=== PATIENT | female | born 1980 | race Caucasian/White ===

== ENCOUNTER 2017-12-10 09:57 | Emergency (ER) | payer OTHER, MEDICAID ==
[~2017-12-10] VITALS: Ht 149.9 cm; Wt 59.0 kg
[~2017-12-10 09:57] MED LIST: ACCUNEB SO1.25 MG/1; ACETAMINOPHEN; ADVAIR; ALEVE220 M1; BACTRIM DS TAB1 EACH PO; BENADRYL25 MG PO; CEFDINIR300 MG PO; CHERATUSSIN DA480 ML PO; CLONAZEPAM PO; DESYREL150 MG PO; DIFLUCAN150 M1 PO; FIORINAL 50-321 EACH; FLAGYL500 MG PO; FLEXERIL PO; HYDROCODON-ACE1 EACH; HYDROCODONE-AP1 EAC6 PO; IBUPROFEN 800800 M1; KEFLEX500 MG; KEFLEX500 MG PO; NORCO 5-325 TA1 EACH PO; ONDANSETRON HCL4 M2 PO; PHENERGAN 25 MG25 M1 PO; PHENERGAN25 MG RE; PRENATAL; PRILOSEC 20 MG20 MG; PROVENTIL IH; TRINATE TABLET1 TAB PO; ULTRAM 50MG TAB50 MG PO; VENTOLIN HFA 1818 GM INH; VISTARIL 25 MG25 M1 PO; ZOFRAN ODT4 MG PO; ZOFRAN4 MG PO; ZOLOFT100 MG PO
[2017-12-10] MEDS ORDERED: VALIUM2 MG PO (10:13)
[2017-12-10] MEDS ORDERED: INDERAL40 MG PO (10:13)
[2017-12-10 10:48] LABS: URINE BLOOD 3+ (Negative); URINE CLARITY CLEAR; URINE COLOR YELLOW; URINE GLUCOSE-RANDOM NEGATIVE (Negative); URINE KETONES NEGATIVE (Negative); URINE LEUKOCYTES-REFLEX NEGATIVE (Negative); URINE NITRITE-REFLEX NEGATIVE (Negative); URINE PROTEIN 1+ (Negative); URINE SPECIFIC GRAVITY >= 1.030 (1.005-1.030); URINE UROBILINOGEN 0.2 E.U./dl (0.2-1.0)
[2017-12-10 10:49] LABS: ICTOTEST (BILI CONFIRMATORY) Negative (Negative); URINE BILIRUBIN 1+ (Negative)
[2017-12-10 10:53] LABS: BACTERIA-REFLEX 1-9 Few /HPF (None Seen); CASTS None Seen /LPF (None Seen); CRYSTALS None Seen /LPF (None Seen); MUCUS None Seen strn/LPF (None Seen); SQUAMOUS 4-10 Moderate /LPF (0-3); URINE RBC >20 Many /HPF (0-2); URINE WBC-REFLEX 0-5 Rare /HPF (0-5)
[2017-12-10 10:59] LABS: ABSOLUTE BASOPHILS 0.1 thou/uL (0.0-0.2); ABSOLUTE EOSINOPHILS 0.2 thou/uL (0.0-0.7); ABSOLUTE LYMPHOCYTES 2.6 thou/uL (0.8-5.3); ABSOLUTE MONOCYTES 0.5 thou/uL (0.0-1.2); ABSOLUTE NEUTROPHILS 6.6 thou/uL (1.6-8.1); BASOPHILS 0.6 %; EOSINOPHILS 1.9 %; HEMOGLOBIN 14.1 gm/dL (12.0-15.0); MCH 31.9 pg (26.0-34.0); MCHC 33.6 g/dL (28.0-37.0); MCV 95.2 fL (80.0-100.0); MONOCYTES 5.3 %; MPV 7.7 fl. (7.2-11.1); NUCLEATED RBCS 0 /100WBC; PLATELET COUNT* 279 thou/uL (150-400); POLYS 66.2 %; RBC 4.41 mil/uL (4.20-5.00); RDW-CV 14.7 % (10.5-14.5); WBC 9.9 thou/uL (4.0-11.0)
[2017-12-10 11:04] LABS: CALCIUM 8.2 mg/dL (8.5-10.1); CREATININE 0.8 mg/dL (0.6-1.3); POTASSIUM 3.7 mmol/L (3.5-5.1)
[2017-12-10 11:09] LABS: ALBUMIN 3.5 g/dL (3.4-5.0); TOTAL BILIRUBIN 0.3 mg/dL (<0.1-1.0); TOTAL PROTEIN 6.7 g/dL (6.4-8.2)
[2017-12-10] MEDS ORDERED: PERCOCET 5-3251 EACH PO (11:46)
[2017-12-10 12:13] VITALS: BP 143/83
== END 2017-12-10 12:13 | disposition home or self-care (01) ==
LOC: M.ERS 09:57
PROVIDERS: Nurse Practitioner Family
DX: N83.291 Other ovarian cyst, right side (principal); J45.909 Unspecified asthma, uncomplicated; G43.909 Migraine, unspecified, not intractable, without status migrainosus; F41.9 Anxiety disorder, unspecified; F17.210 Nicotine dependence, cigarettes, uncomplicated; Z90.711 Acquired absence of uterus with remaining cervical stump; Z88.1 Allergy status to other antibiotic agents; Z88.8 Allergy status to other drugs, medicaments and biological substances

== ENCOUNTER → 2017-12-21 | Outpatient (CLI) | payer OTHER, MEDICAID ==
[~2017-12-21] MED LIST changes: +INDERAL40 MG PO; +PERCOCET 5-3251 EACH PO; +VALIUM2 MG PO
== END ==
LOC: M.ULTRA 11:26
DX: N83.201 Unspecified ovarian cyst, right side (principal); Z90.710 Acquired absence of both cervix and uterus

== ENCOUNTER → 2018-07-27 | Outpatient (CLI) | payer OTHER, MEDICAID | LOC: M.ULTRA 07-21 08:10 | DX: N83.202 Unspecified ovarian cyst, left side (principal); N83.201 Unspecified ovarian cyst, right side; N20.0 Calculus of kidney; Z87.442 Personal history of urinary calculi; Z90.710 Acquired absence of both cervix and uterus ==

== ENCOUNTER → 2018-07-30 | Outpatient (CLI) | payer OTHER, MEDICAID | LOC: M.RAD 14:43 | DX: M54.6 Pain in thoracic spine (principal); V89.0XXA Person injured in unspecified motor-vehicle accident, nontraffic, initial encounter ==

== ENCOUNTER → 2018-08-09 | Outpatient (CLI) | payer OTHER, MEDICAID | LOC: M.CT 08:25 | DX: M54.5 Low back pain (principal); Z87.442 Personal history of urinary calculi ==

== ENCOUNTER → 2019-06-23 | Outpatient (CLI) | payer OTHER, MEDICAID ==
[~2019-06-23] MED LIST changes: +IBUPROFEN 800800 M1 PO; +LEVAQUIN 750 M750 MG PO; +PERCOCET PO
--- NOTE | 2019-06-23 15:22 | EKG ---
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
== END ==
LOC: M.CRD 11:02
DX: R00.2 Palpitations (principal)

== ENCOUNTER → 2019-08-23 | Outpatient (CLI) | payer OTHER, MEDICAID | LOC: M.RAD 10:20 | DX: M25.512 Pain in left shoulder (principal) ==

== ENCOUNTER 2020-03-07 15:43 | Emergency (ER) | payer OTHER, MEDICAID ==
[~2020-03-07] VITALS: Ht 149.9 cm; Wt 52.2 kg
[2020-03-07 16:11] LABS: URINE BILIRUBIN NEGATIVE (Negative); URINE BLOOD 1+ (Negative); URINE CLARITY CLEAR; URINE COLOR YELLOW; URINE GLUCOSE-RANDOM NEGATIVE (Negative); URINE KETONES NEGATIVE (Negative); URINE LEUKOCYTES-REFLEX NEGATIVE (Negative); URINE NITRITE-REFLEX NEGATIVE (Negative); URINE PROTEIN NEGATIVE (Negative); URINE SPECIFIC GRAVITY 1.025 (1.005-1.030); URINE UROBILINOGEN 0.2 E.U./dl (0.2-1.0)
[2020-03-07 16:14] LABS: ABSOLUTE BASOPHILS 0.1 thou/uL (0.0-0.2); ABSOLUTE EOSINOPHILS 0.1 thou/uL (0.0-0.7); ABSOLUTE LYMPHOCYTES 2.7 thou/uL (0.8-5.3); ABSOLUTE MONOCYTES 0.4 thou/uL (0.0-1.2); ABSOLUTE NEUTROPHILS 4.8 thou/uL (1.6-8.1); BASOPHILS 0.7 %; EOSINOPHILS 1.8 %; HEMATOCRIT 43.2 % (37.0-47.0); LYMPHOCYTES 33.5 %; MCH 33.5 pg (26.0-34.0); MCHC 34.7 g/dL (28.0-37.0); MCV 96.5 fL (80.0-100.0); MONOCYTES 5.4 %; MPV 7.5 fl. (7.2-11.1); NUCLEATED RBCS 0 /100WBC; PLATELET COUNT* 307 thou/uL (150-400); POLYS 58.6 %; RBC 4.48 mil/uL (4.20-5.00); RDW-CV 12.8 % (10.5-14.5); WBC 8.2 thou/uL (4.0-11.0)
[2020-03-07 16:21] LABS: SQUAMOUS >10 Many /LPF (0-3)
[2020-03-07 16:22] LABS: BACTERIA-REFLEX 1-9 Few /HPF (None Seen); CASTS None Seen /LPF (None Seen); CRYSTALS None Seen /LPF (None Seen); MUCUS >6 Heavy strn/LPF (None Seen); URINE RBC 3-10 Few /HPF (0-2); URINE WBC-REFLEX 0-5 Rare /HPF (0-5)
[2020-03-07 16:24] LABS: CALCIUM 8.9 mg/dL (8.5-10.1); CREATININE 0.9 mg/dL (0.6-1.3)
[2020-03-07 16:28] LABS: ALBUMIN 4.2 g/dL (3.4-5.0); TOTAL BILIRUBIN 0.2 mg/dL (<0.1-1.0); TOTAL PROTEIN 7.8 g/dL (6.4-8.2)
[2020-03-07] MEDS ORDERED: NORCO 5-325 TA1 EAC2 PO (17:32)
[2020-03-07] MEDS ORDERED: IBUPROFEN 800800 M1 PO (17:32)
[2020-03-07] MEDS ORDERED: ONDANSETRON HCL4 M2 PO (17:32)
[2020-03-07] MEDS ORDERED: CIPRO500 MG PO (17:32)
[2020-03-07] MEDS ORDERED: FLOMAX0.4 MG PO (17:33)
[2020-03-07] MEDS ORDERED: PERCOCET PO (17:39)
[2020-03-07 17:55] VITALS: BP 131/70
== END 2020-03-07 17:56 | disposition home or self-care (01) ==
LOC: M.ERS 15:43
PROVIDERS: Nurse Practitioner Family
DX: N20.1 Calculus of ureter (principal); J45.909 Unspecified asthma, uncomplicated; G43.909 Migraine, unspecified, not intractable, without status migrainosus; F41.9 Anxiety disorder, unspecified; F17.210 Nicotine dependence, cigarettes, uncomplicated; Z98.890 Other specified postprocedural states; Z90.710 Acquired absence of both cervix and uterus; Z88.1 Allergy status to other antibiotic agents; Z88.6 Allergy status to analgesic agent; Z88.8 Allergy status to other drugs, medicaments and biological substances

== ENCOUNTER 2020-10-03 17:56 | Inpatient (IN) | payer OTHER, MEDICAID ==
[~2020-10-03] VITALS: Ht 149.9 cm; Wt 180.1 kg
[~2020-10-03 17:56] MED LIST changes: +CIPRO500 MG PO; +FLOMAX0.4 MG PO; +NORCO 5-325 TA1 EAC2 PO
[2020-10-03 18:10] VITALS: BP 142/95
[2020-10-03 18:42] LABS: HEMATOCRIT 49.3 % (37.0-47.0); HEMOGLOBIN 15.6 gm/dL (12.0-15.0); MCH 32.3 pg (26.0-34.0); MCHC 31.7 g/dL (28.0-37.0); MPV 7.1 fl. (7.2-11.1); NUCLEATED RBCS 0 /100WBC; PLATELET COUNT* 379 thou/uL (150-400); RBC 4.84 mil/uL (4.20-5.00); RDW-CV 17.7 % (10.5-14.5); WBC 23.5 thou/uL (4.0-11.0)
[2020-10-03 18:49] LABS: CALCIUM 8.5 mg/dL (8.5-10.1); CREATININE 1.3 mg/dL (0.6-1.3)
[2020-10-03 18:53] LABS: ALBUMIN 3.9 g/dL (3.4-5.0); TOTAL BILIRUBIN 0.3 mg/dL (<0.1-1.0); TOTAL PROTEIN 8.3 g/dL (6.4-8.2)
[2020-10-03 18:59] LABS: POTASSIUM 1.9 mmol/L (3.5-5.1)
[2020-10-03 19:09] LABS: ABSOLUTE LYMPHOCYTES 1.6 thou/uL (0.8-5.3); ABSOLUTE MONOCYTES 1.4 thou/uL (0.0-1.2); ABSOLUTE NEUTROPHILS 20.4 thou/uL (1.6-8.1)
[2020-10-03 19:11] LABS: ANISOCYTOSIS 1+; MACROCYTES Occasional; PLATELET ESTIMATE ADEQUATE
[2020-10-03 19:18] LABS: ACETAMINOPHEN < 2 ug/mL (10-30); ALCOHOL < 10 mg/dL (<10); SALICYLATE 13.3 mg/dL (2.8-20.0)
[2020-10-03 19:46] LABS: INFLUENZA A ANTIGEN Negative (Negative); INFLUENZA B ANTIGEN Negative (Negative)
[2020-10-03 20:08] LABS: BE -27.8 mmol/L (-2 to +3)
[2020-10-03 20:11] LABS: PCO2 < 17.0 mmHg (35.0-45.0); PO2 132.2 mmHg (75.0-100.0); pH 6.943 (7.340-7.450)
[2020-10-03 21:10] LABS: URINE BLOOD 2+ (Negative); URINE CLARITY CLEAR; URINE COLOR YELLOW; URINE GLUCOSE-RANDOM NEGATIVE (Negative); URINE LEUKOCYTES-REFLEX NEGATIVE (Negative); URINE NITRITE-REFLEX NEGATIVE (Negative); URINE PROTEIN 1+ (Negative); URINE SPECIFIC GRAVITY >= 1.030 (1.005-1.030); URINE UROBILINOGEN 0.2 E.U./dl (0.2-1.0)
[2020-10-03 21:13] LABS: ICTOTEST (BILI CONFIRMATORY) Negative (Negative); URINE BILIRUBIN 1+ (Negative); URINE KETONES 3+ (Negative)
[2020-10-03 21:20] LABS: AMP/METHAMP POSITIVE (Negative); BARBITURATES POSITIVE (Negative); BENZODIAZEPINES POSITIVE (Negative); COCAINE Negative (Negative); METHADONE Negative (Negative); OPIATES Negative (Negative); PCP Negative (Negative); THC POSITIVE (Negative)
[2020-10-03 21:22] LABS: APTT 34.3 Seconds (25.0-31.3); INR 1.1; PROTIME 11.3 Seconds (9.20-11.50)
[2020-10-03 21:25] LABS: HYALINE CASTS 4-10 Moderate /LPF (None Seen); SQUAMOUS >10 Many /LPF (0-3)
[2020-10-03 21:26] LABS: BACTERIA-REFLEX 1-9 Few /HPF (None Seen); CRYSTALS None Seen /LPF (None Seen); MUCUS None Seen strn/LPF (None Seen); URINE RBC 3-10 Few /HPF (0-2); URINE WBC-REFLEX 0-5 Rare /HPF (0-5)
[2020-10-03 22:28] LABS: BE -25.9 mmol/L (-2 to +3)
[2020-10-03 22:32] LABS: PCO2 19.3 mmHg (35.0-45.0); pH 6.975 (7.340-7.450)
[2020-10-03 22:33] LABS: PO2 > 488.8 mmHg (75.0-100.0)
[2020-10-03 22:35] LABS: PHOSPHORUS* 2.2 mg/dL (2.5-4.9); POTASSIUM 2.5 mmol/L (3.5-5.1)
[2020-10-03 23:02] LABS: ACETAMINOPHEN < 2 ug/mL (10-30); SALICYLATE 10.6 mg/dL (2.8-20.0)
[2020-10-03 23:52] VITALS: BP 129/88
[2020-10-03 23:55] VITALS: BP 118/70
[2020-10-04] VITALS (37 sets, daily range): BP systolic 76–141; BP diastolic 44–90
[2020-10-04 03:28] LABS: BE -18.8 mmol/L (-2 to +3); PCO2 22.2 mmHg (35.0-45.0)
[2020-10-04 03:29] LABS: pH 7.168 (7.340-7.450)
[2020-10-04 03:30] LABS: PO2 57.2 mmHg (75.0-100.0)
[2020-10-04 05:10] LABS: HEMATOCRIT 40.4 % (37.0-47.0); MCH 32.2 pg (26.0-34.0); MCHC 32.5 g/dL (28.0-37.0); RBC 4.08 mil/uL (4.20-5.00); RDW-CV 16.7 % (10.5-14.5); WBC 13.4 thou/uL (4.0-11.0)
[2020-10-04 05:17] LABS: MAGNESIUM 1.8 mg/dL (1.8-2.4); PHOSPHORUS* < 0.5 mg/dL (2.5-4.9)
[2020-10-04 05:20] LABS: ALBUMIN 2.5 g/dL (3.4-5.0); CALCIUM 6.8 mg/dL (8.5-10.1); CREATININE 0.9 mg/dL (0.6-1.3); TOTAL BILIRUBIN 0.4 mg/dL (<0.1-1.0); TOTAL PROTEIN 5.6 g/dL (6.4-8.2)
[2020-10-04 05:31] LABS: HEMOGLOBIN 13.1 gm/dL (12.0-15.0)
--- NOTE | 2020-10-04 10:19 | EKG ---
[place] [address] ELECTROCARDIOGRAM REPORT Name: ALONDRA ALLAN Room: [address] ADM IN .R.#: [id number] Admission: 10/03/20 Attend Phys: Aleah Moe MD Discharge: Date of : 82 Date of Service: 10/03/201927 Report #: [id number] THIS REPORT FOR: //name// [facility] ED Test Date: 2020-10-03 Test Time: 19:28:27 Pat Name: ALONDRA ALLAN Department: Room: [facility] Gender: F Medical Cash Poster: DIAMOND : 1980 Requested By: Amara Ruiz Order Number: [id number] MD: Asael Dumont Measurements Intervals [place] Rate: 102 P: 73 CA: 107 QRS: 59 QRSD: 115 T: -57 QT: 458 QTc: 597 Interpretive Statements Sinus tachycardia Diffuse artifact compared to ECG 06/23/2019 11:23:06 Artifact noted Electronically Signed On 10-04-2020 10:19:42 CDT by Asael Dumont [email or web address] <ELECTRONICALLY SIGNED> By: Asael Dumont MD, FACC 10/04/20 1019 27 27 Asael Dumont MD, FAC /EPI
[2020-10-04 14:41] LABS: CALCIUM 6.7 mg/dL (8.5-10.1); CREATININE 0.8 mg/dL (0.6-1.3); PHOSPHORUS* 0.5 mg/dL (2.5-4.9)
[2020-10-04 16:35] LABS: PCO2 30.7 mmHg (35.0-45.0); PO2 102.3 mmHg (75.0-100.0); pH 7.401 (7.340-7.450)
[2020-10-04 21:26] LABS: CALCIUM 6.4 mg/dL (8.5-10.1); CREATININE 0.7 mg/dL (0.6-1.3); PHOSPHORUS* 1.4 mg/dL (2.5-4.9)
[2020-10-04 21:27] LABS: POTASSIUM 2.5 mmol/L (3.5-5.1)
[2020-10-05] VITALS (57 sets, daily range): BP systolic 75–125; BP diastolic 41–89
[2020-10-05 06:06] LABS: HEMATOCRIT 28.5 % (37.0-47.0); MCH 32.4 pg (26.0-34.0); MCHC 33.7 g/dL (28.0-37.0); MCV 96.1 fL (80.0-100.0); MPV 7.1 fl. (7.2-11.1); RBC 2.97 mil/uL (4.20-5.00); RDW-CV 16.2 % (10.5-14.5); WBC 11.9 thou/uL (4.0-11.0)
[2020-10-05 06:07] LABS: HEMOGLOBIN 9.6 gm/dL (12.0-15.0)
[2020-10-05 06:22] LABS: PCO2 35.6 mmHg (35.0-45.0); pH 7.474 (7.340-7.450)
[2020-10-05 06:24] LABS: PO2 134.9 mmHg (75.0-100.0)
[2020-10-05 06:26] LABS: ALBUMIN 1.8 g/dL (3.4-5.0); CALCIUM 7.3 mg/dL (8.5-10.1); CREATININE 0.6 mg/dL (0.6-1.3); MAGNESIUM 1.3 mg/dL (1.8-2.4); TOTAL BILIRUBIN 0.2 mg/dL (<0.1-1.0); TOTAL PROTEIN 4.5 g/dL (6.4-8.2)
[2020-10-05 06:27] LABS: POTASSIUM 2.4 mmol/L (3.5-5.1)
[2020-10-05 10:01] LABS: BE 1.6 mmol/L (-2 to +3); PCO2 35.2 mmHg (35.0-45.0); PO2 65.2 mmHg (75.0-100.0); pH 7.469 (7.340-7.450)
[2020-10-05 10:27] LABS: URINE BILIRUBIN NEGATIVE (Negative); URINE BLOOD TRACE (Negative); URINE CLARITY CLEAR; URINE COLOR YELLOW; URINE GLUCOSE-RANDOM NEGATIVE (Negative); URINE KETONES 1+ (Negative); URINE LEUKOCYTES TRACE (Negative); URINE NITRITE NEGATIVE (Negative); URINE PROTEIN TRACE (Negative); URINE UROBILINOGEN 0.2 E.U./dl (0.2-1.0)
[2020-10-05 10:51] LABS: BACTERIA 1-9 Few /HPF (None Seen); CASTS None Seen /LPF (None Seen); CRYSTALS None Seen /LPF (None Seen); MUCUS None Seen strn/LPF (None Seen); SQUAMOUS 4-10 Moderate /LPF (0-3); URINE RBC 0-2 Rare /HPF (0-2); URINE WBC 0-5 Rare /HPF (0-5)
[2020-10-05 14:37] LABS: CALCIUM 7.2 mg/dL (8.5-10.1); CREATININE 0.5 mg/dL (0.6-1.3); MAGNESIUM 1.9 mg/dL (1.8-2.4); PHOSPHORUS* 2.9 mg/dL (2.5-4.9)
[2020-10-05 14:40] LABS: POTASSIUM 2.9 mmol/L (3.5-5.1)
[2020-10-05] MEDS ORDERED: PREMARIN1.25 MG PO (18:21)
[2020-10-05] MEDS ORDERED: ZOLOFT100 MG PO (18:23)
[2020-10-05] MEDS ORDERED: LAMICTAL100 MG PO (18:23)
[2020-10-06] VITALS (15 sets, daily range): BP systolic 105–139; BP diastolic 65–92
[2020-10-06 06:11] LABS: HEMATOCRIT 32.5 % (37.0-47.0); HEMOGLOBIN 11.1 gm/dL (12.0-15.0); MCH 33.5 pg (26.0-34.0); MCV 98.3 fL (80.0-100.0); MPV 7.6 fl. (7.2-11.1); RBC 3.31 mil/uL (4.20-5.00); RDW-CV 16.4 % (10.5-14.5); WBC 10.1 thou/uL (4.0-11.0)
[2020-10-06 06:25] LABS: ALBUMIN 2.1 g/dL (3.4-5.0); CALCIUM 7.2 mg/dL (8.5-10.1); CREATININE 0.5 mg/dL (0.6-1.3); MAGNESIUM 1.9 mg/dL (1.8-2.4); POTASSIUM 3.4 mmol/L (3.5-5.1); TOTAL BILIRUBIN 0.4 mg/dL (<0.1-1.0); TOTAL PROTEIN 5.4 g/dL (6.4-8.2)
[2020-10-06 07:18] LABS: PHOSPHORUS* 1.8 mg/dL (2.5-4.9)
[2020-10-06] MEDS ORDERED: ESGIC CAPSULE1 EACH PO (20:10)
[2020-10-07 00:06] VITALS: BP 140/87
[2020-10-07 03:53] VITALS: BP 134/88
[2020-10-07 04:30] LABS: CALCIUM 7.8 mg/dL (8.5-10.1); CREATININE 0.5 mg/dL (0.6-1.3)
[2020-10-07 04:33] LABS: POTASSIUM 2.8 mmol/L (3.5-5.1)
[2020-10-07 08:00] VITALS: BP 144/83
[2020-10-07 11:44] VITALS: BP 126/79
[2020-10-07 15:47] LABS: CALCIUM 7.7 mg/dL (8.5-10.1); CREATININE 0.8 mg/dL (0.6-1.3); POTASSIUM 3.8 mmol/L (3.5-5.1)
[2020-10-07 16:47] VITALS: BP 119/87
[2020-10-07 20:00] VITALS: BP 123/86
[2020-10-08] VITALS: BP 128/68
[2020-10-08 05:24] LABS: CALCIUM 7.9 mg/dL (8.5-10.1); CREATININE 0.6 mg/dL (0.6-1.3); POTASSIUM 3.8 mmol/L (3.5-5.1)
[2020-10-08] MEDS ORDERED: DOXYCYCLINE 10100 MG PO (07:52)
[2020-10-08] MEDS ORDERED: CEFDINIR300 MG PO (07:52)
[2020-10-08] MEDS ORDERED: KLOR-CON M2020 MEQ PO (07:52)
[2020-10-08 10:41] VITALS: BP 128/68
[2020-10-08 14:48] VITALS: BP 128/68
== END 2020-10-08 12:27 | disposition home or self-care (01) | DRG 871 ==
LOC: M.ERS 17:56 → M.ICU 22:04 → M.2W 22:04 → M.TBA-ER 22:04 → M.ICU 23:58 → M.2W 10-06 16:25
PROVIDERS: Internal Medicine; Internal Medicine Nephrology; Nurse Practitioner Family; Personal Emergency Response Attendant; Physician Assistant; ADMIT Family Medicine; ATTEND Family Medicine
PROC: 02HV33Z Insertion of Infusion Device into Superior Vena Cava, Percutaneous Approach (ICD-10-PCS; principal; 2020-10-03)
PROC: 5A1945Z Respiratory Ventilation, 24-96 Consecutive Hours (ICD-10-PCS; principal; 2020-10-03)
PROC: 0BH17EZ Insertion of Endotracheal Airway into Trachea, Via Natural or Artificial Opening (ICD-10-PCS; principal; 2020-10-03)
DX: A41.9 Sepsis, unspecified organism (principal); J96.01 Acute respiratory failure with hypoxia; E43 Unspecified severe protein-calorie malnutrition; J69.0 Pneumonitis due to inhalation of food and vomit; E87.2 Acidosis; E87.3 Alkalosis; M62.82 Rhabdomyolysis; K52.1 Toxic gastroenteritis and colitis; Z68.45 Body mass index [BMI] 70 or greater, adult; J45.909 Unspecified asthma, uncomplicated; R65.20 Severe sepsis without septic shock; G43.909 Migraine, unspecified, not intractable, without status migrainosus; F41.9 Anxiety disorder, unspecified; F43.10 Post-traumatic stress disorder, unspecified; F17.210 Nicotine dependence, cigarettes, uncomplicated; E87.6 Hypokalemia; E83.39 Other disorders of phosphorus metabolism; F13.10 Sedative, hypnotic or anxiolytic abuse, uncomplicated; F15.10 Other stimulant abuse, uncomplicated; D64.9 Anemia, unspecified; T36.95XA Adverse effect of unspecified systemic antibiotic, initial encounter; Z20.822 Contact with and (suspected) exposure to COVID-19; Z90.710 Acquired absence of both cervix and uterus; Z79.899 Other long term (current) drug therapy; Z79.1 Long term (current) use of non-steroidal anti-inflammatories (NSAID); Z88.1 Allergy status to other antibiotic agents; Z88.8 Allergy status to other drugs, medicaments and biological substances; Z88.5 Allergy status to narcotic agent; Y92.89 Other specified places as the place of occurrence of the external cause; Z23 Encounter for immunization

== ENCOUNTER 2021-07-09 12:24 | Emergency (ER) | payer OTHER, MEDICAID ==
[~2021-07-09] VITALS: Ht 175.3 cm; Wt 86.2 kg
[~2021-07-09 12:24] MED LIST changes: +DOXYCYCLINE 10100 MG PO; +ESGIC CAPSULE1 EACH PO; +KLOR-CON M2020 MEQ PO; +LAMICTAL100 MG PO; +PREMARIN1.25 MG PO
[2021-07-09 16:01] LABS: URINE BILIRUBIN NEGATIVE (Negative); URINE BLOOD 1+ (Negative); URINE CLARITY CLEAR; URINE COLOR YELLOW; URINE GLUCOSE-RANDOM NEGATIVE (Negative); URINE KETONES NEGATIVE (Negative); URINE LEUKOCYTES-REFLEX NEGATIVE (Negative); URINE NITRITE-REFLEX NEGATIVE (Negative); URINE PROTEIN NEGATIVE (Negative); URINE UROBILINOGEN 0.2 E.U./dl (0.2-1.0)
[2021-07-09 16:20] LABS: BACTERIA-REFLEX None Seen /HPF (None Seen); CASTS None Seen /LPF (None Seen); CRYSTALS None Seen /LPF (None Seen); MUCUS None Seen strn/LPF (None Seen); SQUAMOUS >10 Many /LPF (0-3); URINE RBC 0-2 Rare /HPF (0-2); URINE WBC-REFLEX 0-5 Rare /HPF (0-5)
[2021-07-09 17:14] LABS: ABSOLUTE BASOPHILS 0.1 thou/uL (0.0-0.2); ABSOLUTE EOSINOPHILS 0.4 thou/uL (0.0-0.7); ABSOLUTE LYMPHOCYTES 3.7 thou/uL (0.8-5.3); ABSOLUTE MONOCYTES 0.6 thou/uL (0.0-1.2); ABSOLUTE NEUTROPHILS 3.9 thou/uL (1.6-8.1); BASOPHILS 1.1 %; EOSINOPHILS 4.4 %; HEMATOCRIT 41.3 % (37.0-47.0); HEMOGLOBIN 13.7 gm/dL (12.0-15.0); LYMPHOCYTES 42.5 %; MCH 31.7 pg (26.0-34.0); MCHC 33.3 g/dL (28.0-37.0); MCV 95.1 fL (80.0-100.0); MONOCYTES 6.7 %; MPV 7.3 fl. (7.2-11.1); NUCLEATED RBCS 0 /100WBC; PLATELET COUNT* 332 thou/uL (150-400); POLYS 45.3 %; RBC 4.34 mil/uL (4.20-5.00); RDW-CV 13.8 % (10.5-14.5); WBC 8.7 thou/uL (4.0-11.0)
[2021-07-09 17:19] LABS: CALCIUM 8.4 mg/dL (8.5-10.1); CREATININE 0.8 mg/dL (0.6-1.3)
[2021-07-09 17:24] LABS: ALBUMIN 3.5 g/dL (3.4-5.0); TOTAL BILIRUBIN 0.3 mg/dL (<0.1-1.0); TOTAL PROTEIN 7.2 g/dL (6.4-8.2)
[2021-07-09] MEDS ORDERED: HYDROCODON-ACE1 EAC7 PO (18:34)
[2021-07-09] MEDS ORDERED: FLOMAX0.4 MG PO (18:37)
[2021-07-09] MEDS ORDERED: ZOFRAN ODT4 MG PO (18:37)
[2021-07-09 18:47] VITALS: BP 139/85
== END 2021-07-09 18:48 | disposition home or self-care (01) ==
LOC: M.ERS 12:24
PROVIDERS: Nurse Practitioner; Nurse Practitioner Family
DX: N20.0 Calculus of kidney (principal); R11.10 Vomiting, unspecified; J45.909 Unspecified asthma, uncomplicated; G43.909 Migraine, unspecified, not intractable, without status migrainosus; F41.9 Anxiety disorder, unspecified; Z90.710 Acquired absence of both cervix and uterus; F17.210 Nicotine dependence, cigarettes, uncomplicated; Z87.442 Personal history of urinary calculi; Z98.890 Other specified postprocedural states; Z79.899 Other long term (current) drug therapy; Z88.1 Allergy status to other antibiotic agents; Z88.5 Allergy status to narcotic agent